=== PATIENT | female | born 1995 | race Caucasian/White ===

== ENCOUNTER → 2025-05-16 | Outpatient (CLI) | payer OTHER, SELFPAY ==
[2025-05-19 07:07] LABS: Chlamydia By Nucleic Acid AMP Negative (Negative); Gonococcus By Nucleic Acid AMP Negative (Negative)
== END | disposition home or self-care (01) ==
LOC: LABSPEC 12:13
PROVIDERS: PCP Student in an Organized Health Care Education/Training Program; Visit Provider Advanced Practice Midwife
DX: O09.90 Supervision of high risk pregnancy, unspecified, unspecified trimester (principal); Z3A.00 Weeks of gestation of pregnancy not specified
CPT/HCPCS: 87086; 87491; 87591

== ENCOUNTER → 2025-06-03 | Outpatient (CLI) | payer OTHER, SELFPAY ==
[2025-06-03 12:12] LABS: Hematocrit 36.9 % (37-47); Hemoglobin 11.9 g/dL (12.0-15.0); Immature Granulocytes Count 0.020 X10^3/uL (0.0-0.0); Mean Corp Hgb Conc 32.2 g/dL (32-36); Mean Corpuscular Volume 82.0 fL (81-99); Mean Platelet Vol. 10.8 fl (6.2-12.0); NRBC Flagged by Analyzer 0 % (0-5); Platelet Count 181 K/mm3 (150-450); RBC Distribution Width CV 16.3 % (11.6-14.6); RBC Distribution Width SD 48.6 fl (35.1-43.9); Red Blood Count 4.50 M/mm3 (4.2-5.4); White Blood Count 5.6 K/mm3 (4.4-11.0)
[2025-06-03 13:05] LABS: HIV Nonreactive (Nonreactive); Hepatitis B Surface Antigen Nonreactive (Nonreactive); Hepatitis C Antibody Nonreactive (Nonreactive); Syphilis Antibodies Nonreactive (Nonreactive)
== END | disposition home or self-care (01) ==
PROVIDERS: PCP Student in an Organized Health Care Education/Training Program; Visit Provider Advanced Practice Midwife
DX: O09.90 Supervision of high risk pregnancy, unspecified, unspecified trimester (principal); Z3A.00 Weeks of gestation of pregnancy not specified
CPT/HCPCS: 36415; 85025; 86703; 86762; 86780; 86803; 86850; 86900; 86901; 87340

== ENCOUNTER → 2025-07-19 | Outpatient (CLI) | payer OTHER, SELFPAY ==
--- NOTE | 2025-07-19 15:20 | US_ITS ---
PROCEDURE: OB LIMITED (NO BIOMETRICS) 07/19/2025 REASON FOR EXAM: VAGINAL BLEEDING IN TECHNIQUE: Procedure Code: USOBL Modality: US Procedure: OB LIMITED (NO BIOMETRICS) COMPARISON: 05/16/2025 FINDINGS FETUS: There is a single living intrauterine gestation. POSITION: position is cephalic. HEART RATE: The heart rate is 145 BPM and regular. PLACENTA: The placenta is anterior. No demonstrated evidence of previa or abruption. AMNIOTIC FLUID: Within normal limits. Max vertical pocket (MVP) measuring 4.6 cm. CERVIX: Unremarkable as visualized. US/OB Limited (No Biometrics) IMPRESSION: 1. Single living intrauterine gestation. 2. No acute abnormality detected. Reading Location: [id number]
== END | disposition home or self-care (01) ==
LOC: US 15:18
PROVIDERS: PCP Student in an Organized Health Care Education/Training Program; Referring Provider Nurse Practitioner Women's Health; Visit Provider Nurse Practitioner Women's Health
DX: O46.90 Antepartum hemorrhage, unspecified, unspecified trimester (principal); Z3A.00 Weeks of gestation of pregnancy not specified
CPT/HCPCS: 76815